=== PATIENT | female | born 1980 | race Caucasian/White ===

== ENCOUNTER → 2020-09-05 | Outpatient (CLI) | payer OTHER | LOC: LAB 11:15 | PROVIDERS: ATTEND Hospitalist | DX: Z20.828 Contact with and (suspected) exposure to other viral communicable diseases (principal) ==

== ENCOUNTER → 2020-10-02 | Outpatient (CLI) | payer OTHER ==
[2020-10-02 11:41] LABS: CHOLESTEROL 180 mg/dL (<200); HDL CHOLESTEROL 46 mg/dL (>40); LDL CHOLESTEROL 118 mg/dL (<100); TC:HDL 3.9 Ratio (Not establshd); TRIGLYCERIDE 81 mg/dL (<150); VLDL 16 mg/dL (<40)
== END ==
LOC: LAB 10:43
DX: R73.09 Other abnormal glucose (principal); I10 Essential (primary) hypertension

== ENCOUNTER 2020-10-21 21:42 | Emergency (ER) | payer OTHER ==
[~2020-10-21] VITALS: Ht 170.2 cm; Wt 181.4 kg
[2020-10-21] MEDS ORDERED: PRINIVIL20 MG PO (21:55)
[2020-10-21] MEDS ORDERED: AZITHROMYCIN500 MG PO (23:37)
[2020-10-21] MEDS ORDERED: ROBITUSSIN100 MG/53 PO (23:37)
[2020-10-21 23:49] VITALS: BP 137/86
== END 2020-10-21 23:50 | disposition home or self-care (01) ==
LOC: ER 21:42
DX: R05 Cough (principal); I10 Essential (primary) hypertension; Z79.899 Other long term (current) drug therapy; Z20.828 Contact with and (suspected) exposure to other viral communicable diseases

== ENCOUNTER → 2020-12-01 | Outpatient (CLI) | payer OTHER ==
[~2020-12-01] MED LIST: AZITHROMYCIN500 MG PO; PRINIVIL20 MG PO; ROBITUSSIN100 MG/53 PO
== END ==
LOC: RAD 07:12
DX: Z12.31 Encounter for screening mammogram for malignant neoplasm of breast (principal)